=== PATIENT | male | born 1955 | race Caucasian/White ===

== ENCOUNTER 2024-10-03 16:26 | Inpatient (IN) | payer MEDICARE ==
[2024-10-03 17:09] LABS: #Basophils 0.03 10x3/uL (0.0-0.2); %Basophils 0.2 % (0.0-1.0); %Eosinophils 0.2 % (0.0-10.0); %Monocytes 6.3 % (0.0-10.0); %Neutrophils 85.9 % (42.0-75.0); Hematocrit 39.9 % (42.0-52.0); Hemoglobin 14.2 g/dL (14.0-18.0); Mean Corpuscular HGB CONC 35.6 g/dL (32.0-36.0); Mean Corpuscular Hemoglobin 33.8 pg (27.0-31.0); Mean Platelet Volume 9.6 fL (7.4-10.4); Platelet Count 204 10x3/uL (130-400); RBC Distribution Width 13.1 % (11.5-14.5)
[2024-10-03 17:25] LABS: ALT (SGPT) 19 U/L (8-55); AST (SGOT) 19 U/L (5-34); Albumin 3.9 g/dL (3.4-4.8); Alkaline Phosphatase 63 U/L (40-110); Anion Gap 13 mmol/L (10-20); BUN (Urea Nitrogen) 12 mg/dL (8.4-25.7); Bilirubin, Total 0.6 mg/dL (0.2-1.2); Calc. Creatinine Clearance 0 mL/min (70-130); Carbon Dioxide 27 mmol/L (23-31); Chloride 98 mmol/L (98-107); Estimated GFR 94; Globulin 3.1 g/dL (2.4-3.5); Glucose 146 mg/dL (83-110); Lipase 17 U/L (8-78); Potassium 3.9 mmol/L (3.5-5.1); Sodium 134 mmol/L (136-145)
[2024-10-03] MEDS ORDERED: Famotidine/PF 20 mg/2ml Vial ONE (17:27)
[2024-10-03] MEDS ORDERED: Lidocaine Viscous Sol 2% 15 ml UD Cup ONE (17:27)
[2024-10-03] MEDS ORDERED: Mag-Al 1200 mg/1200 mg/30 ML UDCUP ONE (17:27)
[2024-10-03 17:28] LABS: Troponin I Less than 0.010 ng/mL (< 0.028)
[2024-10-03] MEDS ORDERED: Acetaminophen 650 MG Suppository PR PRN (20:57)
[2024-10-03] MEDS ORDERED: Calcium Carbonate 500 MG ChewTAB PO PRN (20:57)
[2024-10-03] MEDS ORDERED: Acetaminophen 325 MG TAB PO PRN (20:57)
[2024-10-03] MEDS ORDERED: Senokot S 8.6-50 MG TAB PO PRN (20:57)
[2024-10-03] MEDS ORDERED: Nitroglycerin 0.4 MG TAB (25 Tab Bottle) SL PRN (20:57)
[2024-10-03] MEDS ORDERED: Lorazepam 1 MG TAB PO PRN (21:02)
[2024-10-03] MEDS ORDERED: Promethazine HCl 12.5 MG in Sodium Chloride 0.9% 50 ML IVPB PRN (21:05)
[2024-10-03] MEDS ORDERED: Electrolyte Replacement Protocol 1 EACH FS PRN (21:15)
[2024-10-03 21:33] LABS: Magnesium 2.3 mg/dL (1.6-2.6)
[2024-10-03 21:38] LABS: Troponin I Less than 0.010 ng/mL (< 0.028)
[2024-10-04 00:36] VITALS: BMI 25.4
[2024-10-04 00:38] LABS: Troponin I Less than 0.010 ng/mL (< 0.028)
[2024-10-04 05:00] LABS: #Basophils 0.03 10x3/uL (0.0-0.2); %Basophils 0.3 % (0.0-1.0); %Eosinophils 1.1 % (0.0-10.0); %Lymphocytes 19.2 % (21.0-51.0); %Monocytes 9.6 % (0.0-10.0); %Neutrophils 69.5 % (42.0-75.0); Hematocrit 36.7 % (42.0-52.0); Mean Corpuscular HGB CONC 35.4 g/dL (32.0-36.0); Mean Corpuscular Volume 96.1 fL (78.0-98.0); Mean Platelet Volume 10.2 fL (7.4-10.4); Platelet Count 190 10x3/uL (130-400); RBC Distribution Width 13.2 % (11.5-14.5); Red Blood Cell (RBC) Count 3.82 mill/uL (4.70-6.10)
[2024-10-04 05:21] LABS: Anion Gap 13 mmol/L (10-20); BUN (Urea Nitrogen) 10 mg/dL (8.4-25.7); Calc. Creatinine Clearance 112 mL/min (70-130); Calcium 8.5 mg/dL (7.8-10.44); Carbon Dioxide 25 mmol/L (23-31); Cardiac Risk 3.9 (Less than 4.5); Chloride 100 mmol/L (98-107); Cholesterol 130 mg/dl (< 200 Desired); Estimated GFR 94; Glucose 146 mg/dL (83-110); HDL Cholesterol 33 mg/dL (>60 Neg Risk); LDL Cholesterol, Calculated 62 mg/dL; Potassium 3.7 mmol/L (3.5-5.1); Sodium 134 mmol/L (136-145); Triglycerides 176 mg/dL (Less than 150)
[2024-10-04] MEDS: Folic Acid 1 MG TAB PO SCH (12:31)
[2024-10-04] MEDS: Aspirin Chewable 81 MG TAB PO SCH (12:31)
[2024-10-04] MEDS: Multivit, Therapeutic 1 TAB PO SCH (12:31)
[2024-10-04] MEDS: Pantoprazole DR 40 MG TAB PO SCH (12:32)
[2024-10-04] MEDS: Enoxaparin 40 MG (0.4 mL) SYRINGE SC SCH (14:12)
[2024-10-04] MEDS ORDERED: Lorazepam 1 MG TAB PO PRN (21:02)
[2024-10-04] MEDS: Thiamine 100 MG TAB PO SCH (21:04)
[2024-10-05 05:35] LABS: #Basophils 0.03 10x3/uL (0.0-0.2); %Basophils 0.4 % (0.0-1.0); %Eosinophils 3.1 % (0.0-10.0); %Lymphocytes 19.7 % (21.0-51.0); %Monocytes 9.5 % (0.0-10.0); Hematocrit 36.9 % (42.0-52.0); Hemoglobin 13.1 g/dL (14.0-18.0); Mean Corpuscular HGB CONC 35.5 g/dL (32.0-36.0); Mean Corpuscular Hemoglobin 34.2 pg (27.0-31.0); Mean Corpuscular Volume 96.3 fL (78.0-98.0); Mean Platelet Volume 10.3 fL (7.4-10.4); Platelet Count 175 10x3/uL (130-400); RBC Distribution Width 13.3 % (11.5-14.5); Red Blood Cell (RBC) Count 3.83 mill/uL (4.70-6.10)
[2024-10-05 05:45] LABS: Anion Gap 13 mmol/L (10-20); BUN (Urea Nitrogen) 12 mg/dL (8.4-25.7); Calc. Creatinine Clearance 116 mL/min (70-130); Calcium 8.4 mg/dL (7.8-10.44); Carbon Dioxide 26 mmol/L (23-31); Chloride 103 mmol/L (98-107); Estimated GFR 95; Glucose 151 mg/dL (83-110); Potassium 3.9 mmol/L (3.5-5.1); Sodium 138 mmol/L (136-145)
[2024-10-05] MEDS ORDERED: CEFAZOLIN 2 GM VIAL ONE (13:06)
[2024-10-05] MEDS ORDERED: Gentamicin 80 MG/2 ML VIAL ONE (13:06)
[2024-10-05] MEDS ORDERED: Midazolam HCl 2 mg/2 ml Vial ONE (14:06)
[2024-10-05] MEDS ORDERED: fentaNYL 50 mcg/mL 1 mL Vial ONE ×2 (14:06→16:04)
[2024-10-05] MEDS ORDERED: Acetaminophen 325 MG TAB PO PRN (16:59)
[2024-10-05] MEDS ORDERED: Acetaminophen/Codeine 30-300mg Tablet PO PRN (16:59)
[2024-10-05] MEDS: Cephalexin 250 MG CAP PO SCH (19:38)
[2024-10-05] MEDS: HYDROcodone/Acetaminophen 5/325 mg Tablet PO PRN (19:38)
[2024-10-05] MEDS ORDERED: Lorazepam 1 MG TAB PO PRN (21:02)
[2024-10-06 12:44] VITALS: BP 146/88; TEMP 98
[2024-10-06] MEDS: Colchicine 0.6 MG TAB PO SCH (14:13)
== END 2024-10-06 14:35 | disposition home or self-care (01) | DRG 244 ==
LOC: ERS 16:26 → OBS 20:53 → OBSVTOIN 10-04 13:07
PROVIDERS: ADMIT Internal Medicine; ATTEND Family Medicine
PROC: 0JH606Z Insertion of Pacemaker, Dual Chamber into Chest Subcutaneous Tissue and Fascia, Open Approach (ICD-10-PCS; principal; 2024-10-05)
PROC: 02H63JZ Insertion of Pacemaker Lead into Right Atrium, Percutaneous Approach (ICD-10-PCS; 2024-10-05)
PROC: 02HL3JZ Insertion of Pacemaker Lead into Left Ventricle, Percutaneous Approach (ICD-10-PCS; 2024-10-05)
DX: I44.2 Atrioventricular block, complete (principal); R00.1 Bradycardia, unspecified; R07.9 Chest pain, unspecified; I25.10 Atherosclerotic heart disease of native coronary artery without angina pectoris; E78.1 Pure hyperglyceridemia; F10.90 Alcohol use, unspecified, uncomplicated; Z79.899 Other long term (current) drug therapy; I10 Essential (primary) hypertension
CPT/HCPCS: 33208; 36415; 36416; 71045; 80048; 80053; 80061; 83690; 83735; 83880; 84443; 84484; 85025; 85379; 93005; 93010; 93306; 93798; 94760; 96374; 97139; 99152; 99153; C1785; C1892; C1894; C1898; G0378; J1580; J1650; J2250; J3010; J3490